=== PATIENT | male | born 1990 | race Caucasian/White ===

== ENCOUNTER 2022-09-21 19:09 | Emergency (ER) | payer SELFPAY ==
[~2022-09-21] VITALS: Ht 193 cm; Wt 84.1 kg
[2022-09-21] MEDS ORDERED: ADDERALL 10 MG10 MG PO (19:27)
[2022-09-21 20:10] LABS: BASO # 0.03 K/mm3 (0.02-0.10); EOS # 0.25 K/mm3 (0.04-0.40); EOS % 3.7 % (0.0-4.0); HEMOGLOBIN 14.9 g/dL (13.5-18.0); MEAN CELL VOLUME 88 fl (78-100); MEAN CORPUSCULAR HEMOGLOBIN 30 pg (27-31); MEAN CORPUSCULAR HGB CONC 34 g/dL (33-37); MEAN PLATELET VOLUME 9.4 fl (7.4-10.4); MONO # 0.65 K/mm3 (0.20-0.80); NEU # 3.13 K/mm3 (1.40-6.50); PLATELET COUNT 257 K/mm3 (130-400); RED BLOOD COUNT 5.03 M/mm3 (4.20-5.60); RED CELL DISTRIBUTION WIDTH 11.7 % (11.5-14.5); WHITE BLOOD COUNT 6.8 K/mm3 (4.8-10.8)
[2022-09-21 20:13] LABS: ALBUMIN 4.6 g/dL (3.5-5.0); POTASSIUM 3.7 mmol/L (3.5-5.1); SODIUM 140 mmol/L (136-145)
[2022-09-21 20:14] LABS: CALCIUM 9.5 mg/dL (8.3-10.5)
[2022-09-21 20:15] LABS: GLUCOSE 87 mg/dL (75-110); TOTAL PROTEIN 7.1 g/dL (6.4-8.3)
[2022-09-21 20:17] LABS: CARBON DIOXIDE 25 mmol/L (22-29); TOTAL BILIRUBIN 0.3 mg/dL (0.2-1.2)
[2022-09-21 20:21] LABS: AST-SGOT 29 U/L (5-34)
[2022-09-21 20:22] LABS: ALT/SGPT 22 U/L (0-55)
[2022-09-21 20:29] LABS: TROPONIN-I < 0.030 ng/mL (<0.030)
[2022-09-21 20:33] LABS: D-DIMER 0.2 mg/L FEU (0.15-0.50)
[2022-09-21 21:18] VITALS: BP 128/79
== END 2022-09-21 21:18 | disposition home or self-care (01) ==
LOC: ED 19:09
PROVIDERS: Family Medicine
DX: I45.6 Pre-excitation syndrome (principal); R53.81 Other malaise; Z28.310 Unvaccinated for COVID-19

== ENCOUNTER → 2024-01-13 | Outpatient (CLI) | payer SELFPAY ==
[~2024-01-13] MED LIST: ADDERALL 10 MG10 MG PO; TOPROL XL 25MG25 MG PO
[2024-01-13 09:08] LABS: BASO # 0.02 K/mm3 (0.02-0.10); EOS # 0.15 K/mm3 (0.04-0.40); EOS % 3.4 % (0.0-4.0); HEMATOCRIT 46.8 % (42.0-52.0); HEMOGLOBIN 15.6 g/dL (13.5-18.0); LYMPH# 1.47 K/mm3 (1.50-4.00); MEAN CELL VOLUME 88 fl (78-100); MEAN CORPUSCULAR HEMOGLOBIN 29 pg (27-31); MEAN CORPUSCULAR HGB CONC 33 g/dL (33-37); MEAN PLATELET VOLUME 9.5 fl (7.4-10.4); MONO # 0.52 K/mm3 (0.20-0.80); NEU # 2.23 K/mm3 (1.40-6.50); PLATELET COUNT 205 K/mm3 (130-400); RED BLOOD COUNT 5.33 M/mm3 (4.20-5.60); RED CELL DISTRIBUTION WIDTH 11.8 % (11.5-14.5); WHITE BLOOD COUNT 4.4 K/mm3 (4.8-10.8)
[2024-01-13 09:22] LABS: ALBUMIN 4.6 g/dL (3.5-5.0); URINE APPEARANCE CLEAR (CLEAR); URINE BILIRUBIN 1+ (NEGATIVE); URINE BLOOD NEGATIVE (NEGATIVE); URINE COLOR YELLOW (YELLOW); URINE GLUCOSE NEGATIVE (NEGATIVE); URINE KETONE NEGATIVE (NEGATIVE); URINE LEUKOCYTE ESTERASE NEGATIVE (NEGATIVE); URINE NITRATE NEGATIVE (NEGATIVE); URINE PROTEIN(semi-quant) NEGATIVE (NEGATIVE)
[2024-01-13 09:23] LABS: CALCIUM 9.4 mg/dL (8.3-10.5)
[2024-01-13 09:25] LABS: TOTAL PROTEIN 6.9 g/dL (6.4-8.3)
[2024-01-13 09:26] LABS: TOTAL BILIRUBIN 0.7 mg/dL (0.2-1.2); URINE MUCUS PRESENT (NOT PRESENT); URINE WBC 0-1 /hpf (0-3)
== END ==
LOC: LAB 08:56
PROVIDERS: Nurse Practitioner Family
DX: R10.9 Unspecified abdominal pain (principal)

== ENCOUNTER → 2024-08-21 | Outpatient (CLI) | payer SELFPAY ==
[2024-08-21 13:49] LABS: URINE WBC 0 /hpf (0-3)
[2024-08-21 14:01] LABS: BASO # 0.03 K/mm3 (0.02-0.10); EOS # 0.24 K/mm3 (0.04-0.40); EOS % 3.9 % (0.0-4.0); HEMATOCRIT 46.7 % (42.0-52.0); HEMOGLOBIN 15.6 g/dL (13.5-18.0); MEAN CELL VOLUME 88 fl (78-100); MEAN CORPUSCULAR HEMOGLOBIN 29 pg (27-31); MEAN CORPUSCULAR HGB CONC 33 g/dL (33-37); MEAN PLATELET VOLUME 9.4 fl (7.4-10.4); MONO # 0.56 K/mm3 (0.20-0.80); NEU # 3.18 K/mm3 (1.40-6.50); PLATELET COUNT 273 K/mm3 (130-400); RED BLOOD COUNT 5.31 M/mm3 (4.20-5.60); RED CELL DISTRIBUTION WIDTH 11.7 % (11.5-14.5); WHITE BLOOD COUNT 6.1 K/mm3 (4.8-10.8)
[2024-08-21 14:10] LABS: SODIUM 142 mmol/L (136-145); URINE APPEARANCE CLEAR (CLEAR); URINE BILIRUBIN NEGATIVE (NEGATIVE); URINE BLOOD NEGATIVE (NEGATIVE); URINE COLOR YELLOW (YELLOW); URINE GLUCOSE NEGATIVE (NEGATIVE); URINE KETONE NEGATIVE (NEGATIVE); URINE LEUKOCYTE ESTERASE NEGATIVE (NEGATIVE); URINE NITRATE NEGATIVE (NEGATIVE); URINE PROTEIN(semi-quant) NEGATIVE (NEGATIVE)
[2024-08-21 14:11] LABS: CALCIUM 9.7 mg/dL (8.3-10.5); PH-URINE 6.5 (5.0 - 8.0)
[2024-08-21 14:12] LABS: GLUCOSE 83 mg/dL (75-110)
[2024-08-21 14:13] LABS: CARBON DIOXIDE 29 mmol/L (22-29)
== END ==
LOC: LAB 13:40
PROVIDERS: Nurse Practitioner Family
DX: R10.9 Unspecified abdominal pain (principal)